=== PATIENT | female | born 1970 | race Caucasian/White ===

== ENCOUNTER → 2017-04-21 | Outpatient (CLI) | payer BC ==
[~2017-04-21] MED LIST: ALBU8.5H; CLON0.5T66 PO; TRAM-420 PO
--- NOTE | 2017-04-22 19:31 | RT HOLTER TEST ---
FACILITY: [facility] PATIENT NAME: OLINDA CAPUTO : [id number] MR: [id number] V: [id number] EXAM DATE: ORDERING PHYSICIAN: LEE BARBOZA TECHNOLOGIST: Hook-up date: 2017-04-21 10:13:00 Duration: 25:23:00 Test Indications: Medications: 354329 QRS complexes 3952 Ventricular ectopics which represent 3 % of total QRS comp. 8 Supraventricular ectopics which represent <1 % of total QRS comp. * Paced QRS complexes which represent % of total QRS comp. VENTRICULAR ECTOPY 3950 Isolated 0 Bigeminal Cycles 1 Couplets 0 Runs 0 Beats in Runs * Beats LONGEST at * BPM at :: -- * Beats FASTEST at * BPM at :: -- SUPRAVENTRICULAR ECTOPY 3 Isolated 1 Couplets 1 Runs 3 Beats in Runs 3 Beats LONGEST at 154 BPM at 04:16:37 2017-04-22 3 Beats FASTEST at 154 BPM at 04:16:37 2017-04-22 HEART RATES 58 MIN at 11:30:43 2017-04-22 84 AVG 138 MAX at 10:18:33 2017-04-21 LONGEST RR 1.432 secs at 05:23:04 2017-04-22 S-T LEVELS Channel 1 -12.800 mm MIN at 10:13:00 2017-04-21 -12.800 mm MAX at 10:13:00 2017-04-21 Channel 2 -12.800 mm MIN at 10:13:00 2017-04-21 -12.800 mm MAX at 10:13:00 2017-04-21 Channel 3 -12.800 mm MIN at 10:13:00 2017-04-21 -12.800 mm MAX at 10:13:00 2017-04-21 The patient was in a sinus rhythm throughout the test. The patient had ventricular ectopy (VE) durin g all the symptom events, but there were many asymptomatic events. There was occasional supraventricular ectopy. Confirmed by MARGARET JIMENES ([id number]) on 04/22/2017 7:31:11 PM Referred By: Overread By: MARGARET JIMENES
== END ==
LOC: RESP 06:39
PROVIDERS: ATTEND Nurse Practitioner Psychiatric/Mental Health
DX: R00.2 Palpitations (principal)
CPT/HCPCS: 93225; 93226

== ENCOUNTER 2017-05-06 01:35 | Emergency (ER) | payer BC ==
[~2017-05-06] VITALS: Ht 167.6 cm; Wt 90.7 kg
[~2017-05-06 01:35] MED LIST changes: -ALBU8.5H; +ALBU8.5H INH
--- NOTE | 2017-05-06 01:38 | ER Report ---
History and Physical Time Seen By MD: 01:38 HPI/ROS CHIEF COMPLAINT: Woke up with vomiting HISTORY OF PRESENT ILLNESS: 46-year-old female woke up with vomiting. She retired to bed feeling normal. She is wearing a two-week monitor for cardiology. She's been having some chest heaviness and fullness. She describes some fluid retention and swelling in her legs. She was sick during the last 2 weeks of March and missed 10 days of work. She notes her symptoms are bad. She was being evaluated prior to this for chest heaviness, anxiety, nocturnal GERD and anxiety. She had an echocardiogram 02/25/17, EKG and Holter monitor 04/21/17 which all were unremarkable. Patient woke up with severe nausea and then vomited. She became diaphoretic. She denies chest or abdominal pain. She denies shortness of breath. She denies anxiousness. She denies recent illness. REVIEW OF SYSTEMS: Respiratory: No cough, no dyspnea. Cardiovascular: No chest pain, no palpitations. Gastrointestinal: As above Musculoskeletal: No back pain. Allergies: Coded Allergies: Penicillins (Verified Allergy, Mild, 05/06/17) amoxicillin (Verified Allergy, Mild, ITCHING, 05/06/17) clavulanic acid (Verified Allergy, Mild, ITCHING, 05/06/17) Home Meds Active Scripts Hydrochlorothiazide (HYDROCHLOROTHIAZIDE) 12.5 Mg Tablet, 1 TAB PO QDAY Y for leg swelling, #30 TAB Prov:LUIS F PITTS DO 05/06/17 Reported Medications Metoprolol Tartrate (METOPROLOL TARTRATE) 25 Mg Tablet, 2 TAB PO BID, TAB 05/06/17 Albuterol Sulfate 90 Mcg/Act (PROAIR HFA 90 MCG/ACT) 8.5 Gm Hfa.aer.ad, 2 PUFF INH Q4H Y for SHORTNESS OF BREATH 02/24/17 Tramadol Hcl (TRAMADOL HCL) 50 Mg Tablet, 50-100 MG PO PRN, TAB 09/07/16 Clonazepam (KLONOPIN) 0.5 Mg Tablet, 0.5 MG PO PRN, #10 TAB 09/07/16 Reviewed Nurses Notes: Yes Old Medical Records Reviewed: Yes Hx Substance Use Disorder: No Hx Alcohol Use: Yes (4-6 WEEKLY) Constitutional Vital Sign - Last 24 Hours 05/06/17 05/06/17 05/06/17 3/1/18 01:45 01:49 02:00 02:15 Temp 98.5 Pulse 69 66 65 66 Resp 14 B/P (MAP) 117/75 Pulse Ox 91 91 90 88 O2 Delivery Room Air 05/06/17 05/06/17 05/06/17 05/06/17 02:22 02:30 02:45 03:00 Pulse 63 66 B/P (MAP) 112/52 (72) 98/55 (69) Pulse Ox 89 93 88 05/06/17 03:21 Pulse 66 Resp 14 B/P (MAP) 102/57 (72) Pulse Ox 92 O2 Delivery Room Air Physical Exam General Appearance: The patient is alert, has no immediate need for airway protection and no current signs of toxicity. Vital signs stable, afebrile, pulse ox normal, HEENT: Pupils equal and round no injection. Oropharynx without redness or exudate, mucous. Membranes are moist Respiratory: Chest is non tender, lungs are clear to auscultation. No wheezing or rails, no chest wall tenderness Cardiac: regular rate and rhythm, no murmur Gastrointestinal: Abdomen is soft and non tender, no masses, bowel sounds normal. Musculoskeletal: Neck: Neck is supple and non tender. No JVD, no lymphadenopathy Extremities have full range of motion and are non tender. 1+ edema bilaterally Skin: No rashes or lesions. DIFFERENTIAL DIAGNOSIS: After history and physical exam differential diagnosis was considered for nausea, vomiting, food poisoning, anxiety, cardiac ischemia, dysrhythmia Medical Decision Making Data Points Result Diagram: 05/06/17 0145 05/06/17 0145 Laboratory Hematology Test 05/06/17 01:45 Red Blood Count 4.46 M/uL (4.17-5.56) Mean Corpuscular Volume 91.2 fL (80.0-96.0) Mean Corpuscular Hemoglobin 31.8 pg (26.0-33.0) Mean Corpuscular Hemoglobin Concent 34.8 g/dL (32.0-36.0) Red Cell Distribution Width 13.2 % (11.5-14.5) Mean Platelet Volume 7.7 fL (7.2-11.1) Neutrophils (%) (Auto) 47.0 % (39.4-72.5) Lymphocytes (%) (Auto) 42.3 % (17.6-49.6) Monocytes (%) (Auto) 8.5 % (4.1-12.4) Eosinophils (%) (Auto) 1.6 % (0.4-6.7) Basophils (%) (Auto) 0.6 % (0.3-1.4) Nucleated RBC Relative Count (auto) 0.0 /100WBC Neutrophils # (Auto) 3.7 K/uL (2.0-7.4) Lymphocytes # (Auto) 3.3 K/uL (1.3-3.6) Monocytes # (Auto) 0.7 K/uL (0.3-1.0) Eosinophils # (Auto) 0.1 K/uL (0.0-0.5) Basophils # (Auto) 0.0 K/uL (0.0-0.1) Nucleated RBC Absolute Count (auto) 0.00 K/uL D-Dimer Quantitative (PE/DVT) < 0.27 ug/ml (0-0.50) Sodium Level 139 mmol/L (137-145) Potassium Level 3.9 mmol/L (3.5-5.0) Chloride Level 101 mmol/L (98-107) Carbon Dioxide Level 27 mmol/L (22-31) Blood Urea Nitrogen 15 mg/dl (7-18) Creatinine 0.70 mg/dl (0.52-1.04) Glomerular Filtration Rate Calc > 60.0 Random Glucose 107 mg/dl (75-110) Calcium Level 9.0 mg/dl (8.4-10.2) Total Bilirubin 0.3 mg/dl (0.2-1.3) Aspartate Amino Transf (AST/SGOT) 22 U/L (0-35) Alanine Aminotransferase (ALT/SGPT) 33 U/L (0-56) Alkaline Phosphatase 60 U/L (0-126) Troponin I < 0.012 ng/ml B-Type Natriuretic Peptide 62 pg/ml (0-100) Total Protein 7.3 gm/dl (6.3-8.2) Albumin 4.1 g/dl (3.5-5.0) Amylase Level 96 U/L (0-110) Lipase 190 U/L (23-300) Chemistry Test 05/06/17 01:45 White Blood Count 7.8 k/uL (4.5-11.0) Red Blood Count 4.46 M/uL (4.17-5.56) Hemoglobin 14.2 g/dL (12.0-16.0) Hematocrit 40.7 % (34.0-47.0) Mean Corpuscular Volume 91.2 fL (80.0-96.0) Mean Corpuscular Hemoglobin 31.8 pg (26.0-33.0) Mean Corpuscular Hemoglobin Concent 34.8 g/dL (32.0-36.0) Red Cell Distribution Width 13.2 % (11.5-14.5) Platelet Count 266 K/uL (150-450) Mean Platelet Volume 7.7 fL (7.2-11.1) Neutrophils (%) (Auto) 47.0 % (39.4-72.5) Lymphocytes (%) (Auto) 42.3 % (17.6-49.6) Monocytes (%) (Auto) 8.5 % (4.1-12.4) Eosinophils (%) (Auto) 1.6 % (0.4-6.7) Basophils (%) (Auto) 0.6 % (0.3-1.4) Nucleated RBC Relative Count (auto) 0.0 /100WBC Neutrophils # (Auto) 3.7 K/uL (2.0-7.4) Lymphocytes # (Auto) 3.3 K/uL (1.3-3.6) Monocytes # (Auto) 0.7 K/uL (0.3-1.0) Eosinophils # (Auto) 0.1 K/uL (0.0-0.5) Basophils # (Auto) 0.0 K/uL (0.0-0.1) Nucleated RBC Absolute Count (auto) 0.00 K/uL D-Dimer Quantitative (PE/DVT) < 0.27 ug/ml (0-0.50) Glomerular Filtration Rate Calc > 60.0 Calcium Level 9.0 mg/dl (8.4-10.2) Total Bilirubin 0.3 mg/dl (0.2-1.3) Aspartate Amino Transf (AST/SGOT) 22 U/L (0-35) Alanine Aminotransferase (ALT/SGPT) 33 U/L (0-56) Alkaline Phosphatase 60 U/L (0-126) Troponin I < 0.012 ng/ml B-Type Natriuretic Peptide 62 pg/ml (0-100) Total Protein 7.3 gm/dl (6.3-8.2) Albumin 4.1 g/dl (3.5-5.0) Amylase Level 96 U/L (0-110) Lipase 190 U/L (23-300) Coagulation Test 05/06/17 01:45 D-Dimer Quantitative (PE/DVT) < 0.27 ug/ml EKG/Imaging EKG Interpretation 12 lead EK Rhythm: normal sinus rhythm [place]: normal QRS: normal ST segments: normal, there is significant loss of QRS height in the V leads of questionable significance, compared to previous EKG dated 02/24/17 Imaging X-ray: Single view portable chest x-ray was obtained. I viewed the images myself on the PACS system. My interpretation of the images is: No infiltrate, no effusion, normal mediastinum., Comparison to previous chest x-ray dated , no significant change. The radiologist interpretation had no clinically significant variation from this interpretation. ED Course/Re-evaluation Clinical Indication for ER IV: IV Access ED Course Patient was admitted to an examination room. H&P was done. Patient woke up with severe nausea and not feeling well. She eventually vomited. Patient's been undergoing extensive evaluation for the last several weeks. She is on a two-week cardiac event monitor by cardiology. She's been having symptoms since November when she had a CT angiogram and diagnostic studies are unremarkable. Late March. She got infected with influenza and was sick for 10 days or more. She missed 10 days of work. Now she has persistent fatigue and palpitations. She describes some peripheral edema. She had a normal echocardiogram on 02/25/17. She continues to have a normal EKG. She notes some minimal edema in her legs. A repeat diagnostic evaluation shows a normal EKG, normal troponin, normal d-dimer, normal BMP. Her chest x-rays clear. She denies significant nausea and received IV fluids, Zofran 4 mg, Phenergan 12.5 mg with control of her symptoms. She'll be discharged home and placed on hydrochlorothiazide 12.5 mg for her lower extremity edema. She is advised to follow-up with her primary care Marita Hanna for further diagnostic evaluation as well as her brick catcher. Decision to Disposition Date: May 06, 2017 Decision to Disposition Time: 02:17 Depart Departure Latest Vital Signs Vital Signs Date Time Temp Pulse Resp B/P (MAP) Pulse Ox O2 Delivery O2 Flow Rate FiO2 05/06/17 03:21 66 14 102/57 (72) 92 Room Air 05/06/17 01:49 98.5 Impression: Primary Impression: Nausea and vomiting Additional Impressions: Palpitations Lower extremity edema Condition: Improved Disposition: HOME OR SELF-CARE New Scripts Hydrochlorothiazide (HYDROCHLOROTHIAZIDE) 12.5 Mg Tablet 1 TAB PO QDAY Y for leg swelling, #30 TAB Prov: LUIS F PITTS DO 05/06/17 Patient Instructions: Leg Edema (ED) Additional Instructions: Follow-up with your primary care and cardiology as planned Problem Qualifiers Primary Impression: Nausea and vomiting Vomiting type: unspecified Vomiting Intractability: unspecified Qualified Codes: R11.2 - Nausea with vomiting, unspecified LUIS F PITTS DO May 06, 2017 01:38
[2017-05-06] MEDS ORDERED: ONDANSETRON 4 MG/2 ML VIAL IVP ONE (01:45)
[2017-05-06] MEDS: ASPIRIN 81 MG CHEW PO ONE ×2 (01:45→01:58)
[2017-05-06] MEDS ORDERED: METO25TA93 PO (01:49)
--- NOTE | 2017-05-06 02:00 | EKG ---
FACILITY: [facility] PATIENT NAME: OLINDA CAPUTO : [id number] MR: [id number] V: [id number] EXAM DATE: ORDERING PHYSICIAN: LUIS F PITTS TECHNOLOGIST: RACHEL Test Reason : CP Blood Pressure : / mmHG Vent. Rate : 066 BPM Atrial Rate : 066 BPM P-R Int : 162 ms QRS Dur : 092 ms QT Int : 402 ms P-R-T Axes : 036 058 014 degrees QTc Int : 421 ms Sinus rhythm No acute appearing findings Decreased R wave progression anteriorly When compared with ECG of 24-FEB-2017 11:58, No significant change was found Confirmed by SAHARA NOVOA ([id number]) on 05/06/2017 5:16:16 AM Referred By: Confirmed By:SAHARA NOVOA
[2017-05-06 02:04] LABS: PLATELET COUNT, AUTOMATED 266 K/uL (150-450)
--- NOTE | 2017-05-06 02:35 | RADIOLOGY IMAGING REPORT ---
FACILITY: [facility] [place] PATIENT NAME: Jo Ann Nash : 1970 MR: [id number] V: [id number] EXAM DATE: ORDERING PHYSICIAN: LUIS F PITTS TECHNOLOGIST: Location: [facility] [place] Patient: Jo Ann Nash : 1970 Visit/Account:[id number] Date of Sevice: 05/06/2017 EXAMINATION: Portable chest radiograph single view at 0210 hours HISTORY: Chest pain, nausea. COMPARISON: 02/24/2017. FINDINGS: A single portable AP view of the chest is obtained. Lines/tubes: None. Lungs/pleura: No focal consolidation or pleural effusion. Heart: Negative. Mediastinum: Negative. Bony structures/body wall: Negative. IMPRESSION: No radiographic evidence of acute cardiopulmonary disease. Report Dictated By: Rachele Solano MD at 05/06/2017 2:30 AM Report E-Signed By: Rachele Solano MD at 05/06/2017 2:30 AM WSN:[id number]
[2017-05-06] MEDS ORDERED: PROMETHAZINE 25 MG/ML 1 ML AMP IVP ONE (02:40)
[2017-05-06] MEDS ORDERED: predniSONE 20 MG TAB PO ONE (02:40)
[2017-05-06] MEDS ORDERED: HYDR12.561 PO (02:48)
[2017-05-06 03:21] VITALS: BP 102/57
== END 2017-05-06 03:24 | disposition home or self-care (01) ==
LOC: ER 01:48
DX: R00.2 Palpitations (principal); R60.9 Edema, unspecified; R11.2 Nausea with vomiting, unspecified
CPT/HCPCS: 71045; 82150; 83690; 83880; 84484; 85025; 85379; 93005; 96374; 96375; 99284; J2405; J2550; 82040; 82247; 82310; 82374; 82435; 82565; 82947; 84075; 84132; 84155; 84295; 84450; 84460; 84520

== ENCOUNTER → 2017-07-02 | Outpatient (REF) | payer BC ==
[~2017-07-02] MED LIST changes: +CLON0.255 PO; +HYDR12.561 PO; +METO-253 PO; +METO25TA93 PO; +[UNRECOGNIZED DRUG - CODE] PO
[2017-07-02 11:28] LABS: PLATELET COUNT, AUTOMATED 259 K/uL (150-450)
== END ==
PROVIDERS: ATTEND Physician Assistant Medical
DX: R10.9 Unspecified abdominal pain (principal)
CPT/HCPCS: 82040; 82247; 82310; 82374; 82435; 82565; 82947; 84075; 84132; 84155; 84295; 84450; 84460; 84520; 85025

== ENCOUNTER 2017-07-07 00:16 | Day surgery (SDC) | payer BC ==
[~2017-07-07] VITALS: Ht 167.6 cm; Wt 48.1 kg
[2017-07-07 07:47] VITALS: BP 114/59
[2017-07-07] MEDS ORDERED: PROPOFOL EMUL(*) 10MG/ML 20 ML 60 ML ONE (09:47)
[2017-07-07] MEDS ORDERED: LIDOCAINE MPF 1% 5 ML VIAL ONE (09:47)
[2017-07-07] MEDS ORDERED: NORMOSOL R SOLN(*) 1000 ML BAG 1,000 ML IV PRN (09:50)
[2017-07-07] MEDS ORDERED: LIDOCAINE/SOD BICARB 8.4% SYR ID ONE (09:50)
[2017-07-07] MEDS ORDERED: PROPOFOL EMUL(*) 10MG/ML 20 ML 40 ML ONE (10:04)
[2017-07-07] MEDS ORDERED: PROPOFOL EMUL(*) 10MG/ML 20 ML 20 ML ONE (10:23)
[2017-07-07 10:40] VITALS: BP 118/69
[2017-07-07] MEDS ORDERED: PANT40TA65 PO (10:52)
--- NOTE | 2017-07-07 10:52 | Short(Outpt) Discharge Summary ---
Discharge Summary Reason for Hosp/Final Diag: (1) Nausea and vomiting Status: Acute Hospital Course & Plan: EGD with biopsies and colonoscopy with polypectomy x2 completed without problems. (2) Left lower quadrant pain Status: Chronic (3) History of peptic ulcer Status: Chronic (4) Right upper quadrant abdominal pain Status: Chronic (5) Family history of esophageal cancer Departure Discharge to: Home, Self Care Discharge Instructions Home Meds Active Scripts Sodium Chloride/Nahco3/Kcl/Peg (GAVILYTE-N SOLUTION) 4,000 Ml Soln.recon, 1 GAL PO ONCE, #1 GAL 0 Refills Prov:CAROLINE CINTRON MD 06/07/17 Reported Medications Metoprolol Tartrate (METOPROLOL TARTRATE) 25 Mg Tablet, 1 TAB PO BID, TAB 06/29/17 Clonazepam (CLONAZEPAM) 0.25 Mg Tab.rapdis, 0.25 MG PO BID Y for prn, #7 TAB 06/07/17 Tramadol Hcl (TRAMADOL HCL) 50 Mg Tablet, 50-100 MG PO PRN, TAB 09/07/16 Follow up Referrals: General Surgery - 07/23/17 @ Surgery, General with Caroline Cintron Md You have a follow up appointment scheduled with Dr. Cintron on 07/23/17, at 11:30am. Diet: Regular Activity: As Tolerated Special Instructions: Your upper endoscopy and colonoscopy were completed without problems. I found some inflammation in your lower stomach but no ulcers or other abnormalities in your esophagus, stomach, or duodenum. I found 2 polyps in your colon and these were removed and sent to pathology. I would like to start you on a stomach medication to treat the inflammation in your stomach and see if you're feeling better on this medication when I see you back in my office in a couple of weeks. The medication is called pantoprazole and it works best if you take the pill first thing in the morning, before eating anything, and wait 30 minutes before eating. Problem Qualifiers (1) Nausea and vomiting: Vomiting type: unspecified Vomiting Intractability: unspecified Qualified Codes: R11.2 - Nausea with vomiting, unspecified CAROLINE CINTRON MD July 07, 2017 10:52
[2017-07-07 11:05] VITALS: BP 111/64
[2017-07-07 11:19] VITALS: BP 114/65
[2017-07-07 11:32] VITALS: BP 117/81
[2017-07-07 11:33] VITALS: BP 107/76
== END 2017-07-07 11:49 | disposition home or self-care (01) ==
LOC: OR 00:16
PROVIDERS: ATTEND Surgery
DX: K63.5 Polyp of colon (principal); K29.70 Gastritis, unspecified, without bleeding; K44.9 Diaphragmatic hernia without obstruction or gangrene
CPT/HCPCS: 00811; 43239; 45385; 81025; 87077; 88305; 88344; J2001; J2704

== ENCOUNTER → 2018-03-22 | Outpatient (REF) | payer BC ==
[~2018-03-22] MED LIST changes: +PANT40TA65 PO
[2018-03-22 15:31] LABS: PLATELET COUNT, AUTOMATED 251 K/uL (150-450)
== END ==
PROVIDERS: ATTEND Nurse Practitioner Family
DX: R07.9 Chest pain, unspecified (principal)
CPT/HCPCS: 82040; 82247; 82310; 82374; 82435; 82565; 82947; 84075; 84132; 84155; 84295; 84450; 84460; 84484; 84520; 85025

== ENCOUNTER → 2018-06-01 | Outpatient (CLI) | payer BC | LOC: AUD 11:00 | PROVIDERS: ATTEND Otolaryngology | DX: H69.83 Other specified disorders of Eustachian tube, bilateral (principal) | CPT/HCPCS: 92557; 92570 ==

== ENCOUNTER → 2018-06-28 | Outpatient (CLI) | payer BC ==
[~2018-06-28] MED LIST changes: +GADOBENATE 529MG/1ML 15ML VIAL IVP ONE
--- NOTE | 2018-06-28 10:03 | RADIOLOGY IMAGING REPORT ---
FACILITY: [facility] [place] PATIENT NAME: Jo Ann Nash : 1970 MR: [id number] V: [id number] EXAM DATE: ORDERING PHYSICIAN: ESEQUIEL CASTELLANOS TECHNOLOGIST: Location: [facility] Patient: Jo Ann Nash : 1970 Visit/Account:[id number] Date of Sevice: 06/28/2018 EXAMINATION: MRI Brain without intravenous contrast MRI Brain with intravenous contrast, detailed IACs HISTORY: Asymmetric sensorineural hearing loss. Dizziness. Right-sided tinnitus. COMPARISON: None available. TECHNIQUE: Multi-planar, multi-sequence brain MRI was performed before and after IV gadolinium. Thin section imaging was performed in the axial and coronal planes centered on the IACs. CONTRAST: 15 mL of IV MultiHance FINDINGS: IAC detailed study: Brain stem: Negative. Cerebellopontine angles: Negative. IACs / CN VII and VIII: Negative. Inner ear: Negative. Middle ear: Negative. Mastoids / petrous apices: Negative. Rest of brain: Moderate patchy FLAIR hyperintensity in the bilateral deep white matter. IMPRESSION: 1. Moderate chronic white matter disease, nonspecific but most likely representing chronic microvascu lar ischemia. 2. Otherwise normal IAC protocol MRI without and with IV contrast. Report Dictated By: Michael Mcneil MD at 06/28/2018 9:55 AM Report E-Signed By: Michael Mcneil MD at 06/28/2018 9:58 AM WSN:[id number]
== END ==
LOC: MRI 01:20
PROVIDERS: ATTEND Otolaryngology
DX: R90.82 White matter disease, unspecified (principal)
CPT/HCPCS: 70553; A9577

== ENCOUNTER → 2018-08-22 | Outpatient (CLI) | payer BC ==
[~2018-08-22] MED LIST changes: -GADOBENATE 529MG/1ML 15ML VIAL IVP ONE
--- NOTE | 2018-08-22 12:09 | RADIOLOGY IMAGING REPORT ---
FACILITY: [facility] PATIENT NAME: Jo Ann Nash : 1970 MR: [id number] V: [id number] EXAM DATE: ORDERING PHYSICIAN: LEE BARBOZA TECHNOLOGIST: Location: [facility] Patient: Jo Ann Nash : 1970 Visit/Account:[id number] Date of Sevice: 08/22/2018 MRI left shoulder without contrast Indication: Shoulder pain. Comparison: None available Technique: Multiplanar, multisequence MRI examination is performed of the left shoulder without contr ast. FINDINGS: There is a type 1 acromion. There are moderate severity changes of acromioclavicular joint osteoarthr itis with protuberant inferiorly directed distal clavicular osteophytes. The glenohumeral joint is ap propriately aligned. Articular surfaces are maintained. No joint effusion. Examination of the rotator cuff demonstrates mild supraspinatus greater than infraspinatus insertiona l tendinopathy. At the junction of the supraspinatus and infraspinatus tendons, there is low-grade bu rsal sided tearing identified. Linear intrasubstance T2 signal is present within the tendon in this l ocation which may reflect intrasubstance tearing. No full-thickness retracted tear is identified. The re is mild subscapularis insertional tendinopathy without focal tear. Long head biceps tendon is seen within the bicipital groove. Mild tendinopathy in the rotator interval with an intact glenoid insert ion. No evidence of tear. There is a small amount of fluid within the subacromial-subdeltoid bursa. Rotator cuff musculature is normal in bulk. No atrophy seen. IMPRESSION: 1. Mild left shoulder supraspinatus greater than infraspinatus insertional tendinopathy with shallow bursal sided tearing at the junction of the supraspinatus and infraspinatus insertions. Additional ar ea of intrasubstance linear T2 signal is present which may reflect intrasubstance tearing. No high-gr marlo or full-thickness cuff tear is seen. 2. Mild subscapularis insertional tendinopathy without tearing. 3. Trace subacromial-subdeltoid bursitis. 4. 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 Thi s can predispose to shoulder impingement. Report Dictated By: Ziggy Leal at 08/22/2018 11:56 AM Report E-Signed By: Ziggy Leal at 08/22/2018 12:03 PM WSN:[id number]
== END ==
LOC: MRI 00:32
PROVIDERS: ATTEND Nurse Practitioner Psychiatric/Mental Health
DX: M75.112 Incomplete rotator cuff tear or rupture of left shoulder, not specified as traumatic (principal); M75.52 Bursitis of left shoulder